=== PATIENT | female | born 1990 | race African-American/Black ===

== ENCOUNTER 2017-01-23 23:59 | Emergency (ER) | payer MEDICAID ==
[2017-01-25 07:26] LABS: HEPATITIS C ANTIBODY <0.1 (0.0-0.9)
== END 2017-01-24 02:09 | disposition home or self-care (01) ==
LOC: D.ER 23:59
PROVIDERS: Physician Assistant
DX: Z03.89 Encounter for observation for other suspected diseases and conditions ruled out (principal); F17.200 Nicotine dependence, unspecified, uncomplicated

== ENCOUNTER 2017-12-04 19:33 | Emergency (ER) | payer SELFPAY ==
[~2017-12-04] VITALS: Ht 167.6 cm; Wt 85.9 kg
[2017-12-04 19:57] VITALS: Ht 167.6 cm; Wt 85.9 kg
[2017-12-04 21:11] LABS: HCG URINE POSITIVE (NEGATIVE)
[2017-12-04] MEDS ORDERED: PRENATAL COMPLE1 TAB PO (21:12)
[2017-12-04 21:24] VITALS: BP 118/79
== END 2017-12-04 21:25 | disposition home or self-care (01) ==
LOC: D.ER 19:33
PROVIDERS: Family Medicine
DX: Z32.01 Encounter for pregnancy test, result positive (principal); J45.909 Unspecified asthma, uncomplicated

== ENCOUNTER 2017-12-09 17:00 | Emergency (ER) | payer SELFPAY ==
[~2017-12-09] VITALS: Ht 167.6 cm; Wt 85.7 kg
[~2017-12-09 17:00] MED LIST: PRENATAL COMPLE1 TAB PO
[2017-12-09 17:35] VITALS: Ht 167.6 cm; Wt 85.7 kg
[2017-12-09 18:06] LABS: APPEARANCE CLEAR (CLEAR); BILIRUBIN NEGATIVE (NEGATIVE); COLOR YELLOW (YELLOW); GLUCOSE NEGATIVE (NEGATIVE); KETONE NEGATIVE (NEGATIVE); NITRITE NEGATIVE (NEGATIVE); PROTEIN NEGATIVE (NEGATIVE); SPECIFIC GRAVITY 1.015 (1.005-1.020); UROBILINOGEN NORMAL (NORMAL)
[2017-12-09 18:07] LABS: EPITHELIAL CELLS 0-5 /hpf (0-5)
[2017-12-09 18:08] LABS: HCG URINE POSITIVE (NEGATIVE)
[2017-12-09 19:36] LABS: BASOPHILS 0.1 % (0-2); EOSINOPHILS 0.9 % (0-7); HEMATOCRIT 38.5 % (36.0-48.0); HEMOGLOBIN 12.9 g/dL (12-16); IMMATURE GRANULOCYTES 0.3 % (0-5); LYMPHOCYTES 29.3 % (15-50); MCH 31.5 pg (26.0-34.0); MCHC 33.5 g/dL (31.0-37.0); MCV 94.1 fL (80.0-100.0); MEAN PLATELET VOLUME 9.8 fL (7.4-10.4); NEUTROPHILS 62.4 % (40-80); PLATELET COUNT 302 10x3/uL (130-400); RBC 4.09 10x6/uL (4.00-5.40); RDW 12.8 % (11.5-14.5); WBC 9.8 10x3/uL (4.8-10.8)
[2017-12-09 19:49] LABS: ALBUMIN 3.8 g/dL (3.4-5.0); ALKALINE PHOSPHATASE 47 U/L (46-116); ALT (SGPT) 25 U/L (10-68); BILIRUBIN - TOTAL 0.28 mg/dL (0.2-1.3); CALC OSMOLALITY 275 mosm/kg (275-300); CALCIUM 9.3 mg/dL (8.5-10.1); CARBON DIOXIDE 26.6 mmol/L (21.0-32.0); CHLORIDE - SERUM 101 mmol/L (98-107); CREATININE - SERUM 0.8 mg/dL (0.6-1.3); GLUCOSE 98 mg/dL (74-106); POTASSIUM - SERUM 3.5 mmol/L (3.5-5.1); PROTEIN - SERUM 7.8 g/dL (6.4-8.2); SODIUM 139 mmol/L (136-145); UREA NITROGEN 8 mg/dL (7-18); eGFR NON AFRICAN AMERICAN > 90 mL/min (90-120)
[2017-12-09 19:51] LABS: HCG SERUM POSITIVE (NEGATIVE)
[2017-12-09 19:56] LABS: HCG - QUANTITATIVE (MATERNAL) 263 mIU/mL
[2017-12-09 22:05] VITALS: BP 136/80
== END 2017-12-09 22:07 | disposition home or self-care (01) ==
LOC: D.ER 17:00
PROVIDERS: Family Medicine
DX: O20.0 Threatened abortion (principal); Z3A.00 Weeks of gestation of pregnancy not specified